=== PATIENT | male | born 1945 | race Caucasian/White ===

== ENCOUNTER 2023-01-23 10:41 | Outpatient (CLI) | payer MEDICARE, BC ==
[~2023-01-23 10:41] MED LIST: AMLO5TAB16 PO; CLOP75TA34 PO; CYAN500T71 PO; DULO30CA52 PO; EZET10TA48 PO; LOSA25TA41 PO; METO50TA16 PO; NITR0.4T51 SL; PYRI100T10 PO; ROSU40TA22 PO; SPIR25TA5 PO; UBID100C45 PO; VITC500T PO
[2023-01-23 11:32] LABS: BASOPHILS % (AUTO) 0.5 % (0-1); EOSINOPHILS # (AUTO) 0.1 X10'3 (0-0.9); EOSINOPHILS % (AUTO) 2.2 % (0-6); HEMATOCRIT 37.1 % (42.0-52.0); HEMOGLOBIN 12.3 g/dl (14.0-17.9); LYMPHOCYTES # (AUTO) 1.5 X10'3 (1.1-4.8); LYMPHOCYTES % (AUTO) 24.9 % (21-51); MEAN CORPUSCULAR HGB CONC 33.2 g/dL (33.0-36.5); MEAN CORPUSCULAR VOLUME 99.4 FL (78-98); MEAN PLATELET VOLUME 8.6 FL (7.4-10.4); MONOCYTES # (AUTO) 0.6 X10'3 (0-0.9); MONOCYTES % (AUTO) 9.8 % (2-12); NEUTROPHILS # (AUTO) 3.9 X10'3 (1.8-7.7); NEUTROPHILS % (AUTO) 62.6 % (42-75); PLATELET COUNT 150 X10'3 (140-440); RED BLOOD COUNT 3.73 X10'6 (4.70-6.10); RED CELL DISTRIBUTION WIDTH 13.5 % (11.5-14.5); WHITE BLOOD COUNT 6.2 X10'3 (4.5-11.0)
[2023-01-23 11:36] LABS: APTT 26 SECONDS (22-32); PROTHROMBIN TIME 11.1 SECONDS (9.0-12.0)
[2023-01-23 11:37] LABS: ALANINE AMINOTRANSFERASE 39 U/L (12-78); ALBUMIN 3.3 G/DL (3.4-5.0); ALBUMIN/GLOBULIN RATIO 0.8 (1.1-1.5); ALKALINE PHOSPHATASE 64 IU/L (46-116); ANION GAP 8 (8-16); ASPARTATE AMINO TRANSFERASE 26 U/L (10-37); BILIRUBIN,TOTAL 0.5 MG/DL (0.1-1.0); BLOOD UREA NITROGEN 26 MG/DL (7-18); BUN/CREATININE RATIO 17.9 (10.0-20.0); CALCIUM 9.1 MG/DL (8.5-10.1); CHLORIDE 107 MMOL/L (99-107); CREATININE 1.45 MG/DL (0.60-1.10); GLUCOSE 91 MG/DL (70-104); POTASSIUM 4.4 MMOL/L (3.5-5.1); SODIUM 141 MMOL/L (135-145); TOTAL CARBON DIOXIDE 26.2 MMOL/L (24-32); TOTAL PROTEIN 7.6 G/DL (6.4-8.2); eGFR 47 ML/MIN
[2023-01-23 11:46] LABS: PRO BRAIN NATRIURETIC PEPTIDE 344 PG/ML (0-450)
[2023-01-23] MEDS ORDERED: IODIXANOL 320 MG/ML INFUS..BTL 100ML IV ONE (12:14)
== END 2023-01-23 23:59 | disposition home or self-care (01) ==
LOC: RAD 10:41
PROVIDERS: ATTEND Internal Medicine Cardiovascular Disease
DX: I35.0 Nonrheumatic aortic (valve) stenosis (principal); R06.02 Shortness of breath; I65.29 Occlusion and stenosis of unspecified carotid artery; I25.10 Atherosclerotic heart disease of native coronary artery without angina pectoris; N62 Hypertrophy of breast; K80.20 Calculus of gallbladder without cholecystitis without obstruction; M47.814 Spondylosis without myelopathy or radiculopathy, thoracic region; M16.0 Bilateral primary osteoarthritis of hip
CPT/HCPCS: 36415; 71046; 71275; 74174; 75572; 80053; 83880; 85025; 85610; 85730; J3490; Q9967

== ENCOUNTER 2023-02-08 10:05 | Outpatient (CLI) | payer MEDICARE, BC | END 2023-02-08 23:59 | disposition home or self-care (01) | LOC: RT 10:05 | PROVIDERS: ATTEND Internal Medicine Cardiovascular Disease | DX: R94.2 Abnormal results of pulmonary function studies (principal); I35.0 Nonrheumatic aortic (valve) stenosis; R06.02 Shortness of breath; I65.29 Occlusion and stenosis of unspecified carotid artery | CPT/HCPCS: 94010; 94727; 94729 ==

== ENCOUNTER 2023-05-17 17:35 | Inpatient (IN) | payer MEDICARE, BC ==
[~2023-05-17] VITALS: Ht 188 cm; Wt 138.0 kg
[2023-05-17 19:09] LABS: BASOPHILS # (AUTO) 0.1 X10'3 (0-0.2); BASOPHILS % (AUTO) 0.9 % (0-1); EOSINOPHILS # (AUTO) 0.1 X10'3 (0-0.9); EOSINOPHILS % (AUTO) 0.9 % (0-6); HEMATOCRIT 29.6 % (42.0-52.0); HEMOGLOBIN 9.8 g/dl (14.0-17.9); LYMPHOCYTES # (AUTO) 1.2 X10'3 (1.1-4.8); LYMPHOCYTES % (AUTO) 13.5 % (21-51); MEAN CORPUSCULAR HEMOGLOBIN 32.6 PG (27.0-31.0); MEAN CORPUSCULAR HGB CONC 33.1 g/dL (33.0-36.5); MEAN CORPUSCULAR VOLUME 98.5 FL (78-98); MEAN PLATELET VOLUME 11.3 FL (7.4-10.4); MONOCYTES # (AUTO) 1.3 X10'3 (0-0.9); MONOCYTES % (AUTO) 13.8 % (2-12); NEUTROPHILS # (AUTO) 6.6 X10'3 (1.8-7.7); NEUTROPHILS % (AUTO) 70.9 % (42-75); PLATELET COUNT 128 X10'3 (140-440); RED CELL DISTRIBUTION WIDTH 15.1 % (11.5-14.5); WHITE BLOOD COUNT 9.2 X10'3 (4.5-11.0)
[2023-05-17 19:14] LABS: ALANINE AMINOTRANSFERASE 36 U/L (12-78); ALBUMIN 3.5 G/DL (3.4-5.0); ALBUMIN/GLOBULIN RATIO 0.7 (1.1-1.5); ALKALINE PHOSPHATASE 62 IU/L (46-116); ANION GAP 10 (8-16); ASPARTATE AMINO TRANSFERASE 46 U/L (10-37); BILIRUBIN,TOTAL 0.9 MG/DL (0.1-1.0); BLOOD UREA NITROGEN 27 MG/DL (7-18); BUN/CREATININE RATIO 19.1 (10.0-20.0); CALCIUM 8.7 MG/DL (8.5-10.1); CHLORIDE 105 MMOL/L (99-107); CREATININE 1.41 MG/DL (0.60-1.10); GLUCOSE 112 MG/DL (70-104); SODIUM 138 MMOL/L (135-145); TOTAL CARBON DIOXIDE 22.8 MMOL/L (24-32); TOTAL PROTEIN 8.2 G/DL (6.4-8.2); eCRCL 49 ML/MIN; eGFR 48 ML/MIN
[2023-05-17 19:23] LABS: PRO BRAIN NATRIURETIC PEPTIDE 918 PG/ML (0-450)
[2023-05-17 20:00] LABS: POTASSIUM 4.8 MMOL/L (3.5-5.1)
[2023-05-17 20:04] LABS: PLATELET ESTIMATE DECREASED
[2023-05-17 20:05] LABS: LARGE PLATELETS MODERATE
[2023-05-17 20:35] LABS: PHOSPHORUS 2.9 MG/DL (2.3-4.5)
[2023-05-17] MEDS ORDERED: HYDROcodone/acetaminophen 5mg/325mg tablet PO PRN (20:35)
[2023-05-17] MEDS ORDERED: magnesium 4gm in 100ml NS 100 ML IV PRN (20:35)
[2023-05-17] MEDS ORDERED: magnesium 2GM in 50ml NS 50 ML IV PRN (20:35)
[2023-05-17] MEDS ORDERED: potassium Cl 40MEQ/1/2NS 520ml 520 ML IV PRN (20:35)
[2023-05-17] MEDS ORDERED: potassium Cl 20 mEq SR tablet PO PRN ×2 (20:35)
[2023-05-17] MEDS ORDERED: magnesium Cl slow-release 64mg tablet PO PRN (20:35)
[2023-05-17] MEDS ORDERED: morphine 2 MG/ML inj. syringe IV PRN ×2 (20:35)
[2023-05-17] MEDS ORDERED: HYDROcodone/acetaminophen 10/325mg tab PO PRN (20:35)
[2023-05-17] MEDS ORDERED: ondansetron/PF 4mg/2ml inj IV PRN (20:35)
[2023-05-17] MEDS ORDERED: acetaminophen 325mg tablet PO PRN ×2 (20:35)
[2023-05-17 20:36] LABS: APTT 25 SECONDS (22-32)
[2023-05-17] MEDS ORDERED: ASPI-611 PO (20:55)
[2023-05-17] MEDS ORDERED: atorvastatin 20mg tablet PO SCH (21:10)
[2023-05-17] MEDS ORDERED: losartan 50mg tablet PO ONE (21:10)
[2023-05-17] MEDS: furosemide 10 MG/1 ML 10ml inj IV ONE (21:18)
[2023-05-17] MEDS: pantoprazole 40 MG vial IV ONE (21:19)
[2023-05-17] MEDS: nitroGLYCERIN 0.2mg/hour patch TD ONE (21:19)
[2023-05-17] MEDS: aspirin 81mg tab.chew PO ONE (21:20)
[2023-05-17] MEDS: acetaminophen 325mg tablet PO ONE (21:21)
[2023-05-17] MEDS: normal saline 1000ml 1,000 ML IV SCH (21:21)
[2023-05-17] MEDS ORDERED: regadenoson 0.4mg/5ml syringe IV PRN (21:25)
[2023-05-17] MEDS ORDERED: nitroGLYCERIN 0.4mg SUBLingual tab SL PRN (21:25)
[2023-05-17] MEDS ORDERED: aminophylline 250mg/10ml inj. IV PRN (21:25)
[2023-05-17] MEDS ORDERED: metoprolol tartrate 1mg/ml inj IV PRN (21:25)
[2023-05-17] MEDS: clopidogrel 75mg tablet PO ONE (21:30)
[2023-05-17] MEDS: losartan 25mg tablet PO ONE (22:22)
[2023-05-17] MEDS: atorvastatin 20mg tablet PO SCH (22:24)
[2023-05-17] MEDS: metoprolol tartrate 50mg tablet PO ONE (22:24)
[2023-05-18 04:44] LABS: INR 1.1 INR; PROTHROMBIN TIME 11.5 SECONDS (9.0-12.0)
[2023-05-18 04:46] LABS: BASOPHILS % (AUTO) 0.2 % (0-1); EOSINOPHILS % (AUTO) 0.3 % (0-6); HEMATOCRIT 28.6 % (42.0-52.0); HEMOGLOBIN 9.6 g/dl (14.0-17.9); LYMPHOCYTES # (AUTO) 1.2 X10'3 (1.1-4.8); LYMPHOCYTES % (AUTO) 13.9 % (21-51); MEAN CORPUSCULAR HEMOGLOBIN 32.8 PG (27.0-31.0); MEAN CORPUSCULAR HGB CONC 33.5 g/dL (33.0-36.5); MEAN CORPUSCULAR VOLUME 98.1 FL (78-98); MEAN PLATELET VOLUME 11.2 FL (7.4-10.4); MONOCYTES # (AUTO) 1.3 X10'3 (0-0.9); MONOCYTES % (AUTO) 15.3 % (2-12); NEUTROPHILS # (AUTO) 5.8 X10'3 (1.8-7.7); NEUTROPHILS % (AUTO) 70.3 % (42-75); PLATELET COUNT 121 X10'3 (140-440); RED BLOOD COUNT 2.92 X10'6 (4.70-6.10); RED CELL DISTRIBUTION WIDTH 14.8 % (11.5-14.5); WHITE BLOOD COUNT 8.3 X10'3 (4.5-11.0)
[2023-05-18 04:48] LABS: ALANINE AMINOTRANSFERASE 29 U/L (12-78); ALBUMIN 3.2 G/DL (3.4-5.0); ALBUMIN/GLOBULIN RATIO 0.9 (1.1-1.5); ALKALINE PHOSPHATASE 54 IU/L (46-116); ANION GAP 9 (8-16); ASPARTATE AMINO TRANSFERASE 46 U/L (10-37); BILIRUBIN,TOTAL 1.1 MG/DL (0.1-1.0); BLOOD UREA NITROGEN 24 MG/DL (7-18); BUN/CREATININE RATIO 17.8 (10.0-20.0); CALCIUM 8.5 MG/DL (8.5-10.1); CHLORIDE 104 MMOL/L (99-107); CREATININE 1.35 MG/DL (0.60-1.10); GLUCOSE 131 MG/DL (70-104); POTASSIUM 4.1 MMOL/L (3.5-5.1); SODIUM 136 MMOL/L (135-145); TOTAL CARBON DIOXIDE 23.1 MMOL/L (24-32); TOTAL PROTEIN 6.9 G/DL (6.4-8.2); eCRCL 51 ML/MIN; eGFR 51 ML/MIN
[2023-05-18 07:17] LABS: PLATELET ESTIMATE DECREASED
[2023-05-18 07:18] LABS: POIKILOCYTOSIS 1+
[2023-05-18] MEDS: pantoprazole 40 MG vial IV SCH (07:38)
[2023-05-18] MEDS: heparin, porcine 5000 units/ml vial SQ SCH (07:38)
[2023-05-18 15:15] VITALS: BP 148/48; PULSE 70; RESP 15; TEMP 98; O2SAT 97
[2023-05-18 19:00] VITALS: RESP 18; O2SAT 97
[2023-05-18] MEDS: clopidogrel 75mg tablet PO SCH (21:37)
[2023-05-18] MEDS: metoprolol tartrate 25mg tablet PO SCH (21:38)
[2023-05-18] MEDS: ROSUVASTATIN CALCIUM 5 MG TABLET PO SCH (21:38)
[2023-05-18] MEDS: losartan 25mg tablet PO SCH (21:41)
[2023-05-18 22:11] VITALS: BP 141/66; PULSE 76; RESP 18; TEMP 98; O2SAT 98
[2023-05-19 02:28] VITALS: BP 116/55; PULSE 63; RESP 16; TEMP 97.8; O2SAT 97
[2023-05-19 06:54] LABS: BASOPHILS % (AUTO) 0.4 % (0-1); EOSINOPHILS # (AUTO) 0.2 X10'3 (0-0.9); EOSINOPHILS % (AUTO) 2.4 % (0-6); HEMATOCRIT 28.3 % (42.0-52.0); HEMOGLOBIN 9.4 g/dl (14.0-17.9); LYMPHOCYTES # (AUTO) 1.5 X10'3 (1.1-4.8); LYMPHOCYTES % (AUTO) 18.6 % (21-51); MEAN CORPUSCULAR HEMOGLOBIN 32.9 PG (27.0-31.0); MEAN CORPUSCULAR HGB CONC 33.1 g/dL (33.0-36.5); MEAN CORPUSCULAR VOLUME 99.4 FL (78-98); MEAN PLATELET VOLUME 11.5 FL (7.4-10.4); MONOCYTES # (AUTO) 1.1 X10'3 (0-0.9); MONOCYTES % (AUTO) 12.9 % (2-12); NEUTROPHILS # (AUTO) 5.4 X10'3 (1.8-7.7); NEUTROPHILS % (AUTO) 65.7 % (42-75); PLATELET COUNT 120 X10'3 (140-440); RED BLOOD COUNT 2.85 X10'6 (4.70-6.10); RED CELL DISTRIBUTION WIDTH 15.1 % (11.5-14.5); WHITE BLOOD COUNT 8.2 X10'3 (4.5-11.0)
[2023-05-19 06:55] LABS: INR 1.1 INR; PROTHROMBIN TIME 11.4 SECONDS (9.0-12.0)
[2023-05-19 07:18] LABS: ALANINE AMINOTRANSFERASE 32 U/L (12-78); ALBUMIN 3.1 G/DL (3.4-5.0); ALBUMIN/GLOBULIN RATIO 0.8 (1.1-1.5); ALKALINE PHOSPHATASE 54 IU/L (46-116); ANION GAP 10 (8-16); ASPARTATE AMINO TRANSFERASE 45 U/L (10-37); BILIRUBIN,TOTAL 1.2 MG/DL (0.1-1.0); BLOOD UREA NITROGEN 18 MG/DL (7-18); BUN/CREATININE RATIO 14.2 (10.0-20.0); CALCIUM 8.7 MG/DL (8.5-10.1); CHLORIDE 106 MMOL/L (99-107); CREATININE 1.27 MG/DL (0.60-1.10); GLUCOSE 107 MG/DL (70-104); POTASSIUM 4.1 MMOL/L (3.5-5.1); SODIUM 139 MMOL/L (135-145); TOTAL CARBON DIOXIDE 23.2 MMOL/L (24-32); TOTAL PROTEIN 7.2 G/DL (6.4-8.2); eCRCL 54 ML/MIN; eGFR 55 ML/MIN
[2023-05-19 08:41] VITALS: BP_SYST 140
== END 2023-05-19 10:18 | disposition home or self-care (01) | DRG 291 ==
LOC: ER 17:36 → ED HOLD 20:46 → EDBEDREQ 05-18 10:04 → PCU 3S 05-18 11:49
PROVIDERS: ADMIT Internal Medicine; ATTEND Family Medicine
DX: I13.0 Hypertensive heart and chronic kidney disease with heart failure and stage 1 through stage 4 chronic kidney disease, or unspecified chronic kidney disease (principal); I50.33 Acute on chronic diastolic (congestive) heart failure; N17.9 Acute kidney failure, unspecified; D64.9 Anemia, unspecified; D69.6 Thrombocytopenia, unspecified; E78.00 Pure hypercholesterolemia, unspecified; E88.09 Other disorders of plasma-protein metabolism, not elsewhere classified; I25.10 Atherosclerotic heart disease of native coronary artery without angina pectoris; I25.2 Old myocardial infarction; N18.9 Chronic kidney disease, unspecified; Z95.1 Presence of aortocoronary bypass graft; Z95.2 Presence of prosthetic heart valve; Z95.5 Presence of coronary angioplasty implant and graft; R74.01 Elevation of levels of liver transaminase levels; Z79.82 Long term (current) use of aspirin; Z79.899 Other long term (current) drug therapy
CPT/HCPCS: 36415; 71045; 80053; 83880; 84100; 84484; 85008; 85025; 85610; 85730; 93005; 93306; 99285; C9113; G0378; J1644; J1940; J7030

== ENCOUNTER 2023-08-12 07:00 | Day surgery (SDC) | payer MEDICARE, BC ==
[~2023-08-12] VITALS: Ht 188 cm; Wt 121.0 kg
[2023-08-12] VITALS (12 sets, daily range): BP systolic 104–131; BP diastolic 41–78; PULSE 60–80; RESP 10–19; TEMP 98.1; O2SAT 92–99
[~2023-08-12 07:00] MED LIST changes: +ASPI-611 PO
[2023-08-12] MEDS ORDERED: AMIO200T72 PO (07:41)
[2023-08-12] MEDS ORDERED: APIX5TAB3 PO (07:42)
[2023-08-12] MEDS ORDERED: METO-411 PO (07:42)
[2023-08-12] MEDS ORDERED: normal saline 1000ml 1,000 ML IV SCH (07:45)
[2023-08-12 08:02] LABS: BASOPHILS % (AUTO) 0.6 % (0-1); EOSINOPHILS # (AUTO) 0.1 X10'3 (0-0.9); EOSINOPHILS % (AUTO) 1.7 % (0-6); HEMATOCRIT 23.8 % (42.0-52.0); HEMOGLOBIN 7.7 g/dl (14.0-17.9); LYMPHOCYTES # (AUTO) 1.9 X10'3 (1.1-4.8); LYMPHOCYTES % (AUTO) 24.1 % (21-51); MEAN CORPUSCULAR HEMOGLOBIN 30.3 PG (27.0-31.0); MEAN CORPUSCULAR HGB CONC 32.5 g/dL (33.0-36.5); MEAN CORPUSCULAR VOLUME 93.2 FL (78-98); MEAN PLATELET VOLUME 8.5 FL (7.4-10.4); MONOCYTES # (AUTO) 0.8 X10'3 (0-0.9); MONOCYTES % (AUTO) 10.1 % (2-12); NEUTROPHILS % (AUTO) 63.5 % (42-75); PLATELET COUNT 198 X10'3 (140-440); RED BLOOD COUNT 2.56 X10'6 (4.70-6.10); RED CELL DISTRIBUTION WIDTH 20.7 % (11.5-14.5); WHITE BLOOD COUNT 7.9 X10'3 (4.5-11.0)
[2023-08-12 08:11] LABS: ALBUMIN 2.6 G/DL (3.4-5.0); ANION GAP 10 (8-16); BLOOD UREA NITROGEN 26 MG/DL (7-18); CALCIUM 8.9 MG/DL (8.5-10.1); CHLORIDE 105 MMOL/L (99-107); CREATININE 1.62 MG/DL (0.60-1.10); GLUCOSE 108 MG/DL (70-104); MAGNESIUM 1.9 MG/DL (1.5-2.4); POTASSIUM 4.9 MMOL/L (3.5-5.1); SODIUM 138 MMOL/L (135-145); eCRCL 42 ML/MIN; eGFR 41 ML/MIN
[2023-08-12 08:12] LABS: INR 1.3 INR; PROTHROMBIN TIME 13.4 SECONDS (9.0-12.0)
[2023-08-12] MEDS: MIDAZolam 1mg/ml 10ml vial IV PRN (09:32)
[2023-08-12] MEDS: fentaNYL/PF 50MCG/1 ML 2ML syringe IV PRN (09:33)
[2023-08-12 10:28] LABS: ANISOCYTOSIS 3+; PLATELET ESTIMATE NORMAL
[2023-08-12 10:29] LABS: ELLIPTOCYTES 1+; MICROCYTOSIS 1+; SCHISTOCYTES 1+
== END 2023-08-12 11:48 | disposition home or self-care (01) ==
LOC: SSTAY O 07:00
PROVIDERS: ATTEND Internal Medicine Cardiovascular Disease
DX: I48.91 Unspecified atrial fibrillation (principal); E78.5 Hyperlipidemia, unspecified; I10 Essential (primary) hypertension; I25.10 Atherosclerotic heart disease of native coronary artery without angina pectoris; Z79.899 Other long term (current) drug therapy; Z98.890 Other specified postprocedural states
CPT/HCPCS: 36415; 80048; 83735; 85025; 85610; 92960; 93005; J2250; J3010; J7030; 85008; A4620

== ENCOUNTER 2023-11-11 07:04 | Day surgery (SDC) | payer MEDICARE, BC ==
[~2023-11-11] VITALS: Ht 188 cm; Wt 123.5 kg
[~2023-11-11 07:04] MED LIST changes: +AMIO200T72 PO; +APIX5TAB3 PO; -ASPI-611 PO; +DULO20CA18 PO; -DULO30CA52 PO; +FERR325T29 PO; +METO-395 PO; +METO-411 PO; -METO50TA16 PO; +PANT40TA54 PO; -ROSU40TA22 PO; +ROSU40TA71 PO; -SPIR25TA5 PO; -VITC500T PO
[2023-11-11] MEDS ORDERED: MIDAZolam 1mg/ml 10ml vial IV ONE (07:30)
[2023-11-11] MEDS ORDERED: fentaNYL/PF 50MCG/1 ML 2ML syringe IV ONE (07:30)
[2023-11-11] MEDS ORDERED: normal saline 1000ml 1,000 ML IV PRN (07:30)
[2023-11-11] MEDS ORDERED: PYRI50TA12 PO (07:31)
[2023-11-11] MEDS ORDERED: METO25TA6 PO (07:32)
== END 2023-11-11 09:00 | disposition home or self-care (01) ==
LOC: SSTAY O 07:04
PROVIDERS: ATTEND Internal Medicine Cardiovascular Disease
DX: I48.3 Typical atrial flutter (principal); Z53.8 Procedure and treatment not carried out for other reasons; I10 Essential (primary) hypertension; I25.10 Atherosclerotic heart disease of native coronary artery without angina pectoris; E78.5 Hyperlipidemia, unspecified; Z79.01 Long term (current) use of anticoagulants; Z79.02 Long term (current) use of antithrombotics/antiplatelets; Z79.899 Other long term (current) drug therapy; Z90.89 Acquired absence of other organs; Z80.0 Family history of malignant neoplasm of digestive organs
CPT/HCPCS: 93005; J7030

== ENCOUNTER 2024-05-05 13:20 | Outpatient (CLI) | payer MEDICARE, BC ==
[~2024-05-05 13:20] MED LIST changes: -METO-395 PO; -METO-411 PO; +METO25TA6 PO; +PYRI50TA12 PO; -ROSU40TA71 PO; +ROSU40TA89 PO
== END 2024-05-05 23:59 | disposition home or self-care (01) ==
LOC: CARD DIAG 13:20
PROVIDERS: ATTEND Internal Medicine Cardiovascular Disease
DX: I08.8 Other rheumatic multiple valve diseases (principal); I48.91 Unspecified atrial fibrillation
CPT/HCPCS: 93306

== ENCOUNTER 2024-07-10 06:52 | Day surgery (SDC) | payer MEDICARE, BC ==
[2024-07-10] VITALS (22 sets, daily range): BP systolic 122–152; BP diastolic 42–58; PULSE 46–67; RESP 10–18; TEMP 97.3–97.6; O2SAT 96–99
[~2024-07-10] VITALS: Ht 188 cm; Wt 110.4 kg
[2024-07-10] MEDS ORDERED: ceFAZolin 2gm in dextrose, iso 50 ML IV ONE (07:24)
[2024-07-10] MEDS ORDERED: DULO30CA52 PO (07:30)
[2024-07-10 07:47] LABS: INR 1.2 INR; PROTHROMBIN TIME 12.2 SECONDS (9.0-12.0)
[2024-07-10 07:48] LABS: BASOPHILS # (AUTO) 0.1 X10'3 (0-0.2); BASOPHILS % (AUTO) 0.9 % (0-1); EOSINOPHILS # (AUTO) 0.2 X10'3 (0-0.9); EOSINOPHILS % (AUTO) 3.1 % (0-6); HEMATOCRIT 22.8 % (42.0-52.0); HEMOGLOBIN 7.5 g/dl (14.0-17.9); LYMPHOCYTES # (AUTO) 1.5 X10'3 (1.1-4.8); LYMPHOCYTES % (AUTO) 22.2 % (21-51); MEAN CORPUSCULAR HEMOGLOBIN 32.5 PG (27.0-31.0); MEAN CORPUSCULAR VOLUME 98.5 FL (78-98); MEAN PLATELET VOLUME 8.5 FL (7.4-10.4); MONOCYTES # (AUTO) 0.6 X10'3 (0-0.9); MONOCYTES % (AUTO) 9.2 % (2-12); NEUTROPHILS # (AUTO) 4.4 X10'3 (1.8-7.7); NEUTROPHILS % (AUTO) 64.6 % (42-75); PLATELET COUNT 212 X10'3 (140-440); RED BLOOD COUNT 2.32 X10'6 (4.70-6.10); RED CELL DISTRIBUTION WIDTH 18.6 % (11.5-14.5); WHITE BLOOD COUNT 6.9 X10'3 (4.5-11.0)
[2024-07-10 07:59] LABS: ANION GAP 10 (8-16); BLOOD UREA NITROGEN 31 MG/DL (7-18); BUN/CREATININE RATIO 17.1 (10.0-20.0); CHLORIDE 105 MMOL/L (99-107); CREATININE 1.81 MG/DL (0.60-1.10); GLUCOSE 115 MG/DL (70-104); MAGNESIUM 2.2 MG/DL (1.5-2.4); POTASSIUM 3.5 MMOL/L (3.5-5.1); SODIUM 141 MMOL/L (135-145); TOTAL CARBON DIOXIDE 25.8 MMOL/L (24-32); eCRCL 37 ML/MIN; eGFR 36 ML/MIN
[2024-07-10] MEDS: VANCOMYCIN/WATER FOR INJ (PEG) 1.5GM/300 ML IVPB IV ONE (08:03)
[2024-07-10] MEDS ORDERED: vancomycin 1,000mg inj ONE (08:46)
[2024-07-10] MEDS ORDERED: midazolam 1 mg/ML 2ml injection ONE ×4 (08:46→11:12)
[2024-07-10] MEDS ORDERED: fentaNYL/PF 50MCG/1 ML 2ML syringe ONE (08:46)
[2024-07-10] MEDS ORDERED: iohexol 350 MG/ML 50ML vial IV ONE (08:46)
[2024-07-10] MEDS ORDERED: LIDOcaine 1% W/epiNEPHrine 1:100,000 20ml vial ONE (08:46)
[2024-07-10 09:03] LABS: PLATELET ESTIMATE NORMAL
[2024-07-10 09:04] LABS: ANISOCYTOSIS 2+; ELLIPTOCYTES FEW; SCHISTOCYTES FEW; STOMATOCYTES FEW; TEAR DROP CELLS 1+
[2024-07-10] MEDS ORDERED: normal saline 1000ml 1,000 ML IV ONE (12:05)
== END 2024-07-10 17:30 | disposition home or self-care (01) ==
LOC: SSTAY O 06:52
PROVIDERS: ATTEND Internal Medicine Cardiovascular Disease
DX: I49.5 Sick sinus syndrome (principal); R55 Syncope and collapse; I25.10 Atherosclerotic heart disease of native coronary artery without angina pectoris; I10 Essential (primary) hypertension; Z79.01 Long term (current) use of anticoagulants; E78.5 Hyperlipidemia, unspecified
CPT/HCPCS: 33208; 36415; 36430; 71045; 80048; 83735; 85025; 85610; 86885; 86900; 86901; 86920; 93005; 99152; 99153; A4565; A4615; C1785; C1898; J2250; J3010; J3370; J3372; J3490; J7030; P9016; Q9967; Z7610; 85008